=== PATIENT | female | born 1985 | race Caucasian/White ===

== ENCOUNTER 2023-06-28 10:53 | Day surgery (SDC) | payer BC ==
[2023-06-26 15:57] LABS: Potassium 3.4 mEq/L (3.5-5.1)
--- NOTE | 2023-06-27 18:28 | EKG ---
Test Date: 2023-06-26 Test Time: 14:33:59 Substance Abuse Prevention Coordinator: MINGO MEASUREMENT RESULTS: Intervals: Rate: 75 OH: 142 QRSD: 88 QT: 378 QTc: 422 [place]: P: 70 OH: 142 QRS: 80 T: 51 INTERPRETIVE STATEMENTS: Normal sinus rhythm with sinus arrhythmia Normal ECG No previous ECG available for comparison Electronically Signed On 06-27-23 18:26:04 CDT by Dean Pretty
[2023-06-28] MEDS ORDERED: Ringers Lactate 1,000 ML IV ONE (11:16)
[2023-06-28] MEDS ORDERED: CEFAZOLIN SODIUM 2 GM/VIAL ONE (11:16)
[2023-06-28] MEDS ORDERED: MIDAZOLAM HCL 2 MG/2 ML INJ ONE (11:23)
[2023-06-28] MEDS ORDERED: ROCURONIUM 50 MG/5 ML VIAL IV ONE (11:23)
[2023-06-28] MEDS ORDERED: FENTANYL CITR 100 MCG/2 ML ONE (11:23)
[2023-06-28] MEDS ORDERED: propofoL 200 MG/20 ML VIAL IV ONE (11:31)
[2023-06-28] MEDS ORDERED: dexAMETHasone 10 MG/ML VIAL ONE (12:42)
[2023-06-28] MEDS ORDERED: KETOROLAC 30 MG/ML INJ ONE (12:43)
[2023-06-28] MEDS ORDERED: ONDANSETRON 4 MG/2 ML VIAL ONE (12:43)
--- NOTE | 2023-06-28 13:35 | P.OP ---
Preoperative diagnosis: Ventral Umbilical Hernia Postoperative diagnosis: Ventral Umbilical Hernia Primary procedure: Laparoscopic Umbilical Hernia Repair with mesh Anesthesia: GETA + Local Estimated blood loss: <10cc Specimen: Hernia Contents - Adipose Findings: Incarcerated Omental and pre-peritoneal adipose Complications: None Implants: Bard Ventralite ST mesh 11.4cm Round, Sorbafix tacks x 60 Transferred to: Recovery Room Condition: Good
--- NOTE | 2023-06-28 14:39 | OP ---
Date of Procedure: 06/28/2023 Surgeon: Dayton Friedman MD, Preoperative Diagnosis: Ventral umbilical hernia. Postoperative Diagnosis: Ventral umbilical hernia. Procedure Performed: Laparoscopic umbilical hernia repair with mesh. Anesthesia: General endotracheal plus local with 0.25% Marcaine. Estimated Blood Loss: Less than 10 cc. Specimen: Hernia contents, which were adipose tissue. Findings: Incarcerated omental and preperitoneal adipose tissue with an approximately 1.5 cm umbilic al hernia. Complications: None. Implants: Bard Ventralight ST mesh with Echo Positioning System, 11.4 cm round mesh utilized. Sorba Fix absorbable fixation tacks x60 utilized. Disposition: The patient was transferred to the recovery room in good condition. Procedure In Detail: After informed consent was obtained, the patient was brought to the operating r oom, prepped and draped in the usual sterile fashion after adequate anesthesia was achieved. An area of the left upper quadrant was anesthetized with 0.25% Marcaine and sharply incised. A 5 mm trocar was placed under direct visualization without evidence of complication. Insufflation was obtained to 15 mmHg at this time. There was no injury to vital structures upon entry into the abdomen. Additio nal trocar was placed in the left lower abdomen. This was similarly anesthetized, sharply incised, a nd a 12 mm trocar was placed under direct visualization without evidence of complication. Insufflati on remained to 15 throughout the procedure. I then proceeded to take down preperitoneal fat and omen royal fat from the incarcerated umbilical hernia. After the reduction was completed, I swept back the adipose tissue from the preperitoneal fat to allow for an appropriate landing zone of the mesh to the anterior abdominal wall using the Versly LigaSure device. At this point, I used the Endo S titch with 0 V-Loc suture to close the hernia defect at the umbilicus using a running 0 V-Loc suture imbricating the hernia sac at this point with good approximation of tissues. I then deployed the Bar d Ventralight ST mesh with Echo Positioning System. An 11.4 cm round mesh was utilized through a sep arate stab incision. I deployed the balloon at the supraumbilical position. I then tacked it to the anterior abdominal wall using SorbaFix absorbable fixation tacks. I then removed the balloon deploy ment system. A total of 60 tacks were utilized to secure the mesh to the anterior abdominal wall wit h good approximation of mesh to the tissues. No additional hemostatic maneuvers were required at thi s point. Tacks were found to be in good anatomic position at this point. I removed the 12 mm trocar and closed the trocar site using a Colin-Ashleigh suture passer with 0 Vicryl in an interrupted fas hion with good approximation of tissues. I then desufflated the abdomen under direct visualization w ithout evidence of complication. Remaining trocars were removed. All skin incisions were then copio usly irrigated and closed with a 4-0 Monocryl in a running fashion. Dermabond placed over top. The patient tolerated the procedure well without evidence of complication and transferred to PACU in good condition. All counts were correct at the end of the case. MAMADOU/LAILA Voice ID: [id number] Report ID: [id number]
[2023-06-28 14:44] VITALS: BP 119/62; TEMP 97.1; O2SAT 94
== END 2023-06-28 14:56 | disposition home or self-care (01) ==
LOC: OR 10:53
PROVIDERS: ATTEND Surgery
PROC: 0WUF4JZ Supplement Abdominal Wall with Synthetic Substitute, Percutaneous Endoscopic Approach (ICD-10-PCS; principal; 2023-06-28 13:00)
DX: K42.0 Umbilical hernia with obstruction, without gangrene (principal)
CPT/HCPCS: 36415; 80048; 88302; 93005; C1781; J1100; J2250; J2405; J2704; J3010; J7120